=== PATIENT | female | born 1960 | race African-American/Black ===

== ENCOUNTER 2020-01-17 07:59 | Outpatient (REF) | payer OTHER, SELFPAY | END 2020-01-17 08:00 | disposition home or self-care (01) | LOC: HO.HMGCLDS 07:59 | PROVIDERS: Visit Provider Internal Medicine | DX: Z20.828 Contact with and (suspected) exposure to other viral communicable diseases (principal) | CPT/HCPCS: C9803; U0003 ==

== ENCOUNTER 2020-02-02 13:19 | Outpatient (REF) | payer OTHER, SELFPAY | END 2020-02-02 13:20 | disposition home or self-care (01) | LOC: HO.HMGCLDS 13:19 | PROVIDERS: PCP Internal Medicine; Visit Provider Internal Medicine | DX: Z20.828 Contact with and (suspected) exposure to other viral communicable diseases (principal) | CPT/HCPCS: C9803; U0003 ==

== ENCOUNTER 2020-04-29 11:28 | Emergency (ER) | payer OTHER, SELFPAY ==
[2020-04-29 11:48] VITALS: BP 148/84; PULSE 86; RESP 16; TEMP 36.7; O2SAT 98; BMI 41.5
--- NOTE | 2020-04-29 12:20 | ED_ITS ---
HPI - General Adult General Chief complaint: Upper Respiratory Symptoms Stated complaint: FLU SYMPTONS Time Seen by Provider: 04/29/20 11:58 Source: patient Mode of arrival: ambulatory Limitations: no limitations History of Present Illness HPI narrative: 59 yo female presenting with body aches, fatigue and headaches for the last 2 days. She lives with her daughter who was diagnosed with COVID-19 last week. She reports her back aches are severe and she has been taking Tylenol and using Lidoderm patches with minimal relief. She has subjective fever and chills as well. No cough, SOB, chest pain or difficulty breathing. MD complaint: body aches Onset (ago): day(s) (2) Location: head, back, upper extremity and lower extremity Radiation: non-radiation Severity: severe Quality: aching Pain Consistency: constant Relieving factors: medication Exacerbating factors: movement Associated symptoms: fever/chills, headaches, malaise and weakness Treatments prior to arrival: none Related Data Previous Rx's Medication Instructions Recorded ibuprofen 600 mg PO Q8H PRN #20 tab 04/29/20 Allergies Allergy/AdvReac Type Severity Reaction Status Date / Time No Known Allergies Allergy Unverified 11/10/19 15:35 [No Known Allergies*] Review of Systems Review of Systems: Constitutional: + Fever, + Chills ENT/Mouth: No sore throat, No Rhinorrhea, No Swallowing Difficulty Cardiovascular: No Chest Pain, No SOB Respiratory: No Cough, No Sputum Gastrointestinal: No Nausea, No Vomiting, No Diarrhea, No abdominal Pain Musculoskeletal: No joint pain, + Myalgias Skin: No Skin Lesions, No rash Neuro: + Weakness (generalized), No Numbness, No Dizziness, + Headache Heme/Lymph: No Lymphadenopathy PMFSH Past Medical History Attestation statement: The following information was validated with the patient. Medical History HTN (hypertension) Social History Social History Advance Directives: Yes Advance Directives Information Provided: No Advance Directives on File: No Physical Exam Vital Signs: Vital Signs: Last Vital Signs Temp 98.0 F 04/29/20 11:48 Pulse 86 04/29/20 11:48 Resp 16 04/29/20 11:48 BP 148/84 H 04/29/20 11:48 Pulse Ox 98 04/29/20 11:48 Body Mass Index 41.5 Appearance: Alert. Oriented X3. No acute distress. Eyes: Pupils equal, round and reactive to light. ENT: Pharynx normal. Neck: Normal inspection. Neck supple. CVS: Normal heart rate and rhythm. Pulses normal. Respiratory: No respiratory distress. Breath sounds normal. Skin: Skin warm and dry. Normal skin color. Normal skin turgor. No rashes. Extremities: No lower extremity edema. Neuro: Oriented X 3. Non-focal, steady gait. Course Course Course Narrative: 59 y/o female with history of HTN presenting with COVID-19 symptoms after known exposure. Her VS are stable and she appears well, non- toxic. Lungs are clear. Symptoms most likely due to COVID-19 - will swab. Patient has been counseled on symptomatic management and warning signs/symptoms that should prompt urgent re-evaluation. She expressed understanding - stable for discharge home. Discharge Plan Discharge Clinical Impression: COVID-19 Patient Disposition: Home, Self-Care Instructions: COVID-19 (Coronavirus Disease 2019) (ED) Additional Instructions: You were found to be COVID-19 POSITIVE today. Your exam oxygen levels were normal. Rest. Drink plenty of fluids. Do not go out in public for the next 10 days. Take over the counter cold/flu medications as needed for your symptoms. Take Tylenol and/or Motrin as needed for fevers and body aches. Follow up with your doctor this week. If you develop shortness of breath, difficulty breathing or any other concerning symptom come back to the ER for further evaluation. Prescriptions: New ibuprofen 600 mg tablet 600 mg PO Q8H PRN (Reason: pain) Qty: 20 RF: 0 Stand Alone Forms: Work/School Release
[2020-04-29 12:48] LABS: IDNOW Serial# 9DD0AD1C
[2020-04-29 12:49] LABS: COVID-19 Test Positive (Negative)
== END 2020-04-29 13:06 | disposition home or self-care (01) ==
PROVIDERS: Physician Assistant; Emergency Provider Emergency Medicine
DX: U07.1 COVID-19 (principal); I10 Essential (primary) hypertension
CPT/HCPCS: 36415; 87635; 99283

== ENCOUNTER 2020-07-07 20:58 | Emergency (ER) | payer OTHER, SELFPAY ==
--- NOTE | ~2020-07-07 | XR_ITS ---
EXAMINATION: XR TIBIA AND FIBULA, LEFT CLINICAL INFORMATION: Fall with deformity. COMPARISON: None TECHNIQUE: AP and lateral views of the left tibia and fibula were obtained. FINDINGS: No fracture is seen. Soft tissue swelling is present around the lateral malleolus. Bony densities at the tip of the lateral malleolus probably secondary to remote trauma. Mild degenerative changes are present in the partially imaged patellofemoral joint. XR/XR tibia fibula LT 2V IMPRESSION: Soft tissue swelling with no evidence of an acute injury
[2020-07-07 21:19] VITALS: BP 140/78; PULSE 60; RESP 16; TEMP 36.8; O2SAT 98; BMI 41.5
--- NOTE | 2020-07-07 22:43 | ED.LOWEXIN ---
HPI - Extremity Injury (Lower) General Chief Complaint: Extremity Injury, Lower Stated Complaint: fall Time Seen by Provider: 07/07/20 21:44 Source: patient Mode of arrival: ambulatory Limitations: no limitations History of Present Illness HPI Narrative: 59-year-old female presents with right perera injury after tripping down her stairs. She hit her right perera on a stair, experience pain and swelling with bruising. She is having a difficult time ambulating because of the pain in the front of her right lower extremity. She does not report hitting her head, denies loss of consciousness, denies chest pain, chest pressure, palpitations, shortness breath, dizziness, lightheadedness, changes in vision, or any prodromal symptoms prior to her fall. She states that she was rushing to open the door. MD complaint: leg injury Onset (ago): hour(s) (Within the hour of arrival) Type of Injury: blunt Place: home Severity: moderate Severity scale (1-10): 5 Relieving factors: nothing Exacerbating factors: weight bearing, movement and palpation Context: direct blow Associated symptoms: swelling and ambulatory Other symptoms: none Treatments prior to arrival: cold therapy Related Data Previous Rx's Medication Instructions Recorded ibuprofen 600 mg PO Q8H PRN #20 tab 04/29/20 Allergies Allergy/AdvReac Type Severity Reaction Status Date / Time No Known Allergies Allergy Unverified 11/10/19 15:35 [No Known Allergies*] Review of Systems Review of Systems: Constitutional: No Fever, No Chills ENT/Mouth: No Ear Pain, No Hoarseness, No sore throat Eyes: No Eye Pain, No Swelling, No Redness, No Foreign Body Cardiovascular: No Chest Pain, No SOB Respiratory: No Cough, No Dyspnea Gastrointestinal: No Nausea, No Vomiting, No Diarrhea, No abdominal Pain Genitourinary: No Dysuria, No Hematuria Musculoskeletal: positive right anterior perera pain and swelling, No Myalgias, No Joint Swelling Skin: No Skin lacerations, No rash Neuro: No Weakness, No Numbness, No Paresthesias, No Loss of Consciousness, No Dizziness, No Headache Psych: No Anxiety/Panic, No Depression Heme/Lymph: no easy bruising, no Lymphadenopathy Endocrine: No Polyuria, No Polydipsia Yes all other systems are reviewed and are negative [facility] Past Medical History Attestation statement: The following information was validated with the patient. Source: old records reviewed Medical History HTN (hypertension) Social History Social History Advance Directives: No Advance Directives Information Provided: No Patient : No Physical Exam Vital Signs: Vital Signs: Last Vital Signs Temp 98.3 F 07/07/20 21:19 Pulse 60 07/07/20 21:19 Resp 16 07/07/20 21:19 BP 140/78 H 07/07/20 21:19 Pulse Ox 98 07/07/20 21:19 Body Mass Index 41.5 Appearance: Alert. Oriented X3. No acute distress. Eyes: Pupils equal, round and reactive to light. ENT: Pharynx normal. Neck: Normal inspection. Neck supple. CVS: Normal heart rate and rhythm. Pulses normal. Respiratory: No respiratory distress. Breath sounds normal. Abdomen: Soft and nontender. Skin: Skin warm and dry. Normal skin color. Normal skin turgor. Extremities: Positive swelling and bruising to the right perera, moves all extremities against resistance, able to stand and ambulate with a slight limp. Neuro: No motor deficit. No sensory deficit. No focal neural deficits. Course Course Course Narrative: 59-year-old female presents with a right perera injury. Plan of care is x-ray. X-rays negative for acute findings. Will apply an Connor wrap to help with swelling and pain. Instructions for RICE and Tylenol Motrin for pain management. Patient was advised to follow up with her primary care physician if needed. Patient verbalized understanding of and agrees plan of care discharge home. MDM - Extremity Injury (Lower) MDM Narrative Medical decision making narrative: Hematoma, fracture Medical Records Attestation: I reviewed the patient's medical records. Imaging Data Left tib-fib: Attestation: I personally reviewed and interpreted this imaging study as follows: Radiologist's impression: EXAMINATION: XR TIBIA AND FIBULA, LEFT CLINICAL INFORMATION: Fall with deformity. COMPARISON: None TECHNIQUE: AP and lateral views of the left tibia and fibula were obtained. FINDINGS: No fracture is seen. Soft tissue swelling is present around the lateral malleolus. Bony densities at the tip of the lateral malleolus probably secondary to remote trauma. Mild degenerative changes are present in the partially imaged patellofemoral joint. XR/XR tibia fibula LT 2V IMPRESSION: Soft tissue swelling with no evidence of an acute injury Discharge Plan Discharge Clinical Impression: Contusion of left lower leg Patient Disposition: Home, Self-Care Instructions: Contusion in Adults (ED), R.I.C.E. Treatment (ED), Hematoma (ED) Additional Instructions: You were evaluated for injury sustained from a fall. Your x-ray of your left leg is negative for fracture. You do have a contusion or hematoma to your perera. Please keep an Connor wrap on it for the next few days, ice and elevate. Use Motrin or Tylenol as needed for pain management Follow-up with primary care physician as needed. Thank you for choosing this emergency department for evaluation. Please follow-up with primary care physician as needed. Return to the emergency department for any new, concerning, or worsening symptoms. Prescriptions: No Action ibuprofen 600 mg tablet 600 mg PO Q8H PRN (Reason: pain) Qty: 20 RF: 0 Stand Alone Forms: Work/School Release Interventions: ED Discharge Assessment Last Done: 07/07/20 23:28 Discharge Date/Time: 07/07/20 23:29
== END 2020-07-07 23:29 | disposition home or self-care (01) ==
PROVIDERS: Emergency Provider Internal Medicine; PCP Internal Medicine
DX: S80.12XA Contusion of left lower leg, initial encounter (principal); W22.8XXA Striking against or struck by other objects, initial encounter; Y93.89 Activity, other specified; Y92.018 Other place in single-family (private) house as the place of occurrence of the external cause; Y99.9 Unspecified external cause status
CPT/HCPCS: 73590; 99283; 99284

== ENCOUNTER 2020-11-18 09:41 | Emergency (ER) | payer OTHER, SELFPAY ==
[2020-11-18 09:44] VITALS: BP 187/76; PULSE 68; RESP 19; TEMP 36.6; O2SAT 99; BMI 45.7
--- NOTE | 2020-11-18 11:00 | ED.BACK ---
HPI - Back Pain/Injury General Chief Complaint: Back Pain/Injury Stated Complaint: upper back pain Time Seen by Provider: 11/18/20 11:00 Source: patient Mode of arrival: ambulatory Limitations: no limitations History of Present Illness HPI Narrative: 60-year-old female presents with acute on chronic upper back pain. Patient reports she has a lump on the right side of her back that has been worked up and is benign. States that this lump can affect her body mechanics and make her upper back have back pain. One week ago patient started having back pain right greater than left. She called her PCP who refilled her tizanidine. Patient has been alternating Tylenol ibuprofen and taking lidocaine patches. Patient states that the pain gets worse every 4-6 hours. She has not had any trauma, no repetitive motion, no heavy lifting. No red flag symptoms; no fever, leg weakness, incontinence of bowel or bladder, saddle paresthesias, IV drug use, or personal history of cancer. MD elicited complaint: back pain Pertinent past history: prior back pain Onset (ago): week(s) (1) Timing: constant Severity: severe Similar Symptoms Previously: Yes Quality: dull and aching Location: right upper back and left upper back Radiation: none Exacerbating factors: movement Relieving factors: medication Associated symptoms: denies other symptoms Treatments prior to arrival: acetaminophen Work related injury: No Related Data Previous Rx's Medication Instructions Recorded ibuprofen 600 mg tablet 600 mg PO Q8H PRN #20 tab 04/29/20 ketorolac 10 mg tablet 10 mg PO Q6H 5 Days #20 tab 11/18/20 lidocaine 5 % topical patch 1 patch TOPICAL DAILY #15 ea 11/18/20 methocarbamol 750 mg tablet 750 mg PO TID 5 Days #15 tab 11/18/20 Allergies Allergy/AdvReac Type Severity Reaction Status Date / Time No Known Allergies Allergy Unverified 11/10/19 15:35 [No Known Allergies*] Review of Systems Constitutional: Constitutional: Denies body ache(s), Denies chills, Denies fatigue, Denies fever(s), Denies headache(s), Denies malaise and Denies weakness Eyes: Eyes: Denies diplopia ENT: Denies vertigo, Denies dizziness, Denies headache(s), Denies neck pain and Denies throat swelling Cardiovascular: Cardiovascular: Denies chest pain, Denies syncope, Denies leg edema, Denies lightheadedness, Denies Loss of Consciousness, Denies palpitations and Denies dyspnea Respiratory: Respiratory: Denies chest congestion, Denies cough and Denies dyspnea Musculoskeletal: Musculoskeletal: Reports back pain, Denies neck pain, Denies numbness and Denies tingling Neurologic: Denies confusion, Denies vertigo, Denies dizziness, Denies syncope, Denies headache(s), Denies numbness, Denies tingling and Denies weakness Psychiatric: Psychiatric: Denies anxiety, Denies confusion and Denies depression Endocrine: Endocrine: Denies fatigue and Denies palpitations Allergic/Immunologic: Allergic/Immunologic: Denies throat swelling PMFSH Past Medical History Medical History Depression HTN (hypertension) Social History Social History Advance Directives: No Advance Directives Information Provided: No Physical Exam Vital Signs: Vital Signs: Last Vital Signs Temp 98 F 11/18/20 09:44 Pulse 68 11/18/20 09:44 Resp 19 11/18/20 09:44 BP 187/76 H 11/18/20 09:44 Pulse Ox 99 11/18/20 09:44 Body Mass Index 45.7 Const: General: No confusion Nutritional Appearance: well nourished Orientation/consciousness: No confusion Limitations: no limitations Eyes: Conjunctivae: conjunctivae normal Pupils: Equal, round and reactive pupils present EOM: EOMs intact bilaterally Neck: Neck: Yes full ROM, Yes no lymphadenopathy and Yes supple Resp: Effort & Inspection: normal respiratory effort and able to speak in complete sentences Auscultation: clear to auscultation bilaterally, no crackles, no rales, no rhonchi and no wheezes Cardio: Rate: regular rate Rhythm: regular rhythm Heart sounds: S1 normal heart sound present and S2 normal heart sound present : General: Yes no CVA tenderness Back/Spine/Pelvis: Back: no CVA tenderness Cervical Spine: normal cervical lordosis, cervical ROM normal, No Cervical spine tenderness and No cervical ROM abnormal Thoracic/Lumbar Spine: thoraco-lumbar ROM normal, mass (right mid back) rubbery and mobile; Negative for tender, pain with thoraco-lumbar ROM, paraspinal muscle tenderness on the right greater than left, thoraco-lumbar spasm on the right greater than left, No thoracic spinal tenderness, No lumbar spinal tenderness and No straight leg raise positive Pelvis: no pain with anterior-posterior compression and no buttock tenderness Skin: General skin exam: no rashes or lesions noted Neuro: General: No confusion Cranial nerves: Yes Equal, round and reactive pupils present Extrem: General: Yes normal to inspection and Yes full ROM Psych: Appearance: grossly normal Affect: normal affect Attitude: cooperative Thought process: Normal thought process present Course Course Course Narrative: 60-year-old female presents with acute on chronic back pain, no red flag symptoms. Will try different muscle relaxant, stop tizanidine, start Robaxin, gave IM ketorolac, prescribed ketorolac and lidocaine patches, counseled patient to follow-up with her PCP for referral to physical therapy and possibly start a TENs machine again MDM - Back Pain/Injury ECG Data Interpretation: Sinus at a rate of 63, OH interval 126, QTC 435, normal axis, no ST elevation or depression, nonspecific T-wave changes. Is no prior EKG Discharge Plan Discharge Clinical Impression: Back pain Qualifiers: Back pain location: thoracic back pain Chronicity: chronic Back pain laterality: right Qualified Code(s): M54.6 - Pain in thoracic spine Patient Disposition: Home, Self-Care Instructions: Acute Low Back Pain (ED) Additional Instructions: Please call your primary care provider. Please discuss a referral to physical therapy, and possibly starting the TENs machine again. Please fill the prescriptions that I prescribed for you, ketorolac, lidocaine patches, and methocarbamol. Please STOP the tizanidine and START the methocarbamol. Stop taking ibuprofen, and take the ketorolac for the next 5 days. You may take Tylenol as well. Do not take any ibuprofen containing products while you are taking the ketorolac. Please return to emergency room if you have leg weakness, numbness in your groin area, incontinence of bladder or bowel, or any other new or concerning symptoms. Prescriptions: New ketorolac 10 mg tablet 10 mg PO Q6H 5 Days Qty: 20 RF: 0 methocarbamol 750 mg tablet 750 mg PO TID 5 Days Qty: 15 RF: 0 lidocaine 5 % adhesive patch,medicated 1 patch topical DAILY Qty: 15 RF: 0 No Action ibuprofen 600 mg tablet 600 mg PO Q8H PRN (Reason: pain) Qty: 20 RF: 0 Interventions: ED Discharge Assessment Last Done: 11/18/20 12:17 Discharge Date/Time: 11/18/20 12:18
--- NOTE | 2020-11-18 11:46 | ECG_ITS ---
Test Reason : RIGHT ARM PAIN Blood Pressure : / mmHG Vent. Rate : 063 BPM Atrial Rate : 063 BPM P-R Int : 126 ms QRS Dur : 110 ms QT Int : 426 ms P-R-T Axes : 030 024 043 degrees QTc Int : 435 ms Normal sinus rhythm Nonspecific T wave abnormality Abnormal ECG No previous ECGs available Referred By: Bess Domingo Electronically Signed By:GENESIS CACERES
[2020-11-18] MEDS: Ketorolac Tromethamine 15 MG/ML VIAL 30 MG IM (11:51)
[2020-11-18] MEDS: Lidocaine/Epineph/Tetracaine 3 ML GEL.PF.APP TOPICAL (11:52)
== END 2020-11-18 12:18 | disposition home or self-care (01) ==
PROVIDERS: Emergency Provider Emergency Medicine Emergency Medical Services; PCP Internal Medicine
DX: M54.6 Pain in thoracic spine (principal); Z79.899 Other long term (current) drug therapy
CPT/HCPCS: 93005; 96372; 99284; J1885

== ENCOUNTER 2021-09-23 07:26 | Emergency (ER) | payer OTHER, SELFPAY ==
[2021-09-23 07:29] VITALS: BP 150/88; PULSE 72; RESP 18; TEMP 36.6; O2SAT 96; BMI 45.7
--- NOTE | 2021-09-23 08:36 | ED_ITS ---
HPI - Back Pain/Injury General Chief Complaint: Back Pain/Injury Stated Complaint: back, shoulder, arm pain Time Seen by Provider: 09/23/21 08:15 Source: patient Mode of arrival: ambulatory Limitations: no limitations History of Present Illness HPI Narrative: 60 y/o female with history of chronic upper back painWho presents to the ER for acute exacerbation for the last couple of weeks. She reports her sister re cently and the need to clear her apartment, she was doing a lot of heavy lifting a couple of weeks ago and since then she has had worsening of her right-sided upper back pain. She reports the pain radiates down the back of her right arm. She has been having a difficult time finding any comfortable position, sleeping. she was previously prescribed gabapentin last month with some improvement but she ran out. She was also previously on tizanidine and also ran out. She has an appointment with her primary care doctor on September 30 for follow-up and a plan. She also has been using Lidoderm patches, and alternating Motrin and Tylenol. She denies any numbness or tingling in her right upper extremity. She denies any trauma or injury. MD elicited complaint: back pain and back injury Pertinent past history: prior back pain and back surgery (s/p lipoma removal) Onset (ago): week(s) Timing: constant Severity: severe Similar Symptoms Previously: Yes Quality: sharp, aching and spasming Location: right upper back Exacerbating factors: movement Relieving factors: medication Context: while lifting and turning/twisting Associated symptoms: denies other symptoms Treatments prior to arrival: acetaminophen Work related injury: No Related Data Home Medications Medication Instructions Recorded Confirmed amlodipine 10 mg tablet 10 mg PO DAILY 09/10/21 diclofenac sodium 1 % topical gel 2 g topical QID 09/10/21 fluoxetine 40 mg capsule 40 mg PO DAILY 09/10/21 tizanidine 4 mg tablet 4 mg PO BEDTIME 09/10/21 Previous Rx's Medication Instructions Recorded ketorolac 10 mg tablet 10 mg PO Q6H 5 days #20 tabs 11/18/20 lidocaine 5 % topical patch 1 patch topical DAILY #15 ea 11/18/20 methocarbamol 750 mg tablet 750 mg PO TID 5 days #15 tabs 11/18/20 ibuprofen 600 mg tablet 600 mg PO Q8H PRN pain #20 tabs 09/10/21 gabapentin 300 mg capsule 300 mg PO TID #14 caps 09/23/21 oxycodone 5 mg tablet 5 mg PO Q8H PRN severe pain (scale 09/23/21 score 7-10) #8 tabs tizanidine 2 mg tablet 2 mg PO TID PRN muscle spasticity 09/23/21 #14 tabs Allergies Allergy/AdvReac Type Severity Reaction Status Date / Time No Known Allergies Allergy Unverified 09/10/21 15:02 [No Known Allergies*] Review of Systems Review of Systems: Constitutional: No Fever, No Chills ENT/Mouth: No sore throat, No Rhinorrhea Cardiovascular: No Chest Pain, No SOB Respiratory: No Cough, No Sputum Gastrointestinal: No Nausea, No Vomiting, No abdominal Pain Musculoskeletal: + joint pain, + Myalgias Skin: No Skin Lesions, No rash Neuro: No Weakness, No Numbness, No Dizziness, No Headache Psych: No Anxiety/Panic, No Depression Heme/Lymph: No Bruising, No Lymphadenopathy PMFSH Past Medical History Medical History Depression HTN (hypertension) Social History Social History Advance Directives: No Advance Directives Information Provided: No Physical Exam Vital Signs: Vital Signs: Last Vital Signs Temp 98 F 09/23/21 07:29 Pulse 72 09/23/21 07:29 Resp 18 09/23/21 07:29 BP 150/88 H 09/23/21 07:29 Pulse Ox 96 09/23/21 07:29 O2 Del Method 09/23/21 07:29 BMI result Body Mass Index 45.7 Appearance: Alert. Oriented X3. No acute distress. HEENT: normal inspection CVS: Normal heart rate and rhythm. Pulses normal. Respiratory: No respiratory distress. Skin: Skin warm and dry. Normal skin color. Normal skin turgor. No rashes. Extremities: Neuro: Oriented X 3. No motor deficit. No sensory deficit. Course Course Course Narrative: 60 y/o female with history of chronic upper back pain presents with acute exacerbation after lifting heavy boxes a few weeks ago. She has pain radiating into her right posterior arm consistent with radicular pain. Denies trauma. No focal weakness or sensory deficits on examination. She has an appointment with her PCP on 09/30. Will refill her tizanadine, gabapentin and start short course of oxycodone for severe pain. Patient agrees with plan and is stable for discharge home with close outpatient follow up. Discharge Plan Discharge Clinical Impression: Cervical radiculopathy, Chronic upper back pain Patient Disposition: Home, Self-Care Instructions: Cervical Radiculopathy (ED), Back Pain (ED) Additional Instructions: No bending, lifting or twisting. Use ice several times per day for 20 minutes at a time for the next 48 hours and then change to heat. Take medications as prescribed to help with pain and discomfort. Follow up with your Primary Care Doctor on 09/30 as scheduled. If your pain worsens, if you develop new numbness, tingling, weakness, loss of function call 911 or come back to the ER right away for evaluation. Prescriptions: New tizanidine 2 mg tablet 2 mg PO TID PRN (Reason: muscle spasticity) Qty: 14 0RF oxycodone 5 mg tablet 5 mg PO Q8H PRN (Reason: severe pain (scale score 7-10)) Qty: 8 0RF Rx Instructions: Partial Fill upon patient request. gabapentin 300 mg capsule 300 mg PO TID Qty: 14 0RF No Action ketorolac 10 mg tablet 10 mg PO Q6H 5 Days Qty: 20 0RF methocarbamol 750 mg tablet 750 mg PO TID 5 Days Qty: 15 0RF lidocaine 5 % adhesive patch,medicated 1 patch topical DAILY Qty: 15 0RF Rx Instructions: leave on most painful area for up to 12 hrs fluoxetine 40 mg capsule 40 mg PO DAILY amlodipine 10 mg tablet 10 mg PO DAILY tizanidine 4 mg tablet 4 mg PO BEDTIME diclofenac sodium 1 % gel 2 g topical QID Rx Instructions: apply to single elbow, wrist or hand; for hand includes palm/fingers/back of hand ibuprofen 600 mg tablet 600 mg PO Q8H PRN (Reason: pain) Qty: 20 0RF Referrals: Zeferino Marsh III, MD [Primary Care Provider] - (acute on chronic upper back pain, cervical radiculopathy ) Stand Alone Forms: Work/School Release
[2021-09-23] MEDS: oxyCODONE HCl Immed Release 5 MG TABLET PO (08:48)
[2021-09-23] MEDS: Ketorolac Tromethamine 30 MG/ML VIAL IM (08:48)
[2021-09-23] MEDS: Gabapentin 300 MG CAPSULE PO (08:49)
== END 2021-09-23 10:08 | disposition home or self-care (01) ==
PROVIDERS: Emergency Provider Emergency Medicine; PCP Internal Medicine
DX: M54.12 Radiculopathy, cervical region (principal); M54.50 Low back pain, unspecified; M79.601 Pain in right arm; Z79.899 Other long term (current) drug therapy
CPT/HCPCS: 96372; 99283; 99284; J1885

== ENCOUNTER 2022-11-30 06:50 | Emergency (ER) | payer OTHER, SELFPAY ==
[2022-11-30 07:24] VITALS: BP 193/94; PULSE 69; RESP 18; TEMP 36.1; O2SAT 97; BMI 45.4
--- NOTE | 2022-11-30 08:29 | ED.BACK ---
HPI - Back Pain/Injury General Chief Complaint: Back Pain/Injury Stated Complaint: Sciatic pain Time Seen by Provider: 11/30/22 07:46 Source: patient Mode of arrival: ambulatory Limitations: no limitations History of Present Illness HPI Narrative: Patient is a 62-year-old female who presents emergency department for evaluation of right hip pain radiating down her leg. This has been ongoing for the past month. She was evaluated at Urgent Care approximately 2 weeks ago, she had a right lower extremity venous ultrasound revealed no evidence of DVT, she received a prescription for prednisone approximately 1 week ago 40 mg daily for 5 days with some improvement in her pain. She has been applying topical diclofenac gel with minimal improvement. She has known arthritis. Denies any recent precipitating injury. At this time denies any lower back pain. She saw her primary care provider 1 week ago and was given a referral [facility] was advised she will likely require cortisone injections. While she is working she is taking Advil duo twice during the day, and Advil p.m. at bedtime with some improvement in her pain. She had been taking tizanidine with gabapentin frequently throughout the past year, she had some leftover and she states that when she takes this it does help with her pain. However it makes her drowsy, and she cannot work while taking this medication. Denies fevers, chills, burning with micturition, urinary frequency/urgency/hesitancy, bladder or bowel dysfunction, numbness or tingling of the perineum or bilateral legs. Denies any recent surgical procedures, any known immune compromising conditions, personal history of cancer, or IV drug usage. MD elicited complaint: back pain Related Data Home Medications Medication Instructions Recorded Confirmed amlodipine 10 mg tablet 10 mg PO DAILY 09/10/21 diclofenac sodium 1 % topical gel 2 g topical QID 09/10/21 fluoxetine 40 mg capsule 40 mg PO DAILY 09/10/21 tizanidine 4 mg tablet 4 mg PO BEDTIME 09/10/21 Previous Rx's Medication Instructions Recorded ketorolac 10 mg tablet 10 mg PO Q6H 5 days #20 tabs 11/18/20 lidocaine 5 % topical patch 1 patch topical DAILY #15 ea 11/18/20 methocarbamol 750 mg tablet 750 mg PO TID 5 days #15 tabs 11/18/20 ibuprofen 600 mg tablet 600 mg PO Q8H PRN pain #20 tabs 09/10/21 gabapentin 300 mg capsule 300 mg PO TID #14 caps 09/23/21 oxycodone 5 mg tablet 5 mg PO Q8H PRN severe pain (scale 09/23/21 score 7-10) #8 tabs tizanidine 2 mg tablet 2 mg PO TID PRN muscle spasticity 09/23/21 #14 tabs gabapentin 300 mg capsule 300 mg PO TID #20 caps 11/30/22 tizanidine 2 mg capsule 2 mg PO TID PRN muscle spasticity 11/30/22 #20 caps Allergies Allergy/AdvReac Type Severity Reaction Status Date / Time No Known Allergies Allergy Verified 11/30/22 07:28 [No Known Allergies*] Review of Systems Review of Systems: Constitutional: No weight loss, fever, chills, weakness or fatigue. HEENT: No visual loss, blurred vision, double vision. No hearing loss, sneezing, congestion, runny nose or sore throat. Skin: No rash or itching. Cardiovascular: No chest pain, chest pressure or chest discomfort. No palpitations or pedal edema. Respiratory: No shortness of breath, cough or sputum production. Gastrointestinal: No anorexia, nausea, vomiting or diarrhea. No abdominal pain or blood in stool. Genitourinary: No burning micturition. No urinary frequency or incontinence. Neurologic: No headache, dizziness, syncope, unilateral weakness, ataxia, numbness or tingling in the extremities. No change in bowel or bladder control. Musculoskeletal: + hip pain as noted in HPI Hematologic: No bleeding or bruising. Lymphatics: No enlarged lymph nodes. Psychiatric:No depression or anxiety. Endocrine: No reports of sweating. No cold or heat intolerance. No polyuria or polydipsia. Yes all other systems are reviewed and are negative [facility] Past Medical History Attestation statement: The following information was validated with the patient. Source: old records reviewed Medical History Depression HTN (hypertension) Physical Exam Vital Signs: Vital Signs: Last Vital Signs Temp 97.0 F 11/30/22 07:24 Pulse 69 11/30/22 07:24 Resp 18 11/30/22 07:24 BP 193/94 H 11/30/22 07:24 Pulse Ox 97 11/30/22 07:24 O2 Del Method Room Air 11/30/22 07:24 BMI result Body Mass Index 45.4 Appearance: Alert.?Oriented to person, place and time. No acute distress.?Normal affect. Eyes: Pupils equal, round and reactive to light.? ENT: Pharynx normal.?? Neck: Normal inspection.? Neck supple.?? CVS: Heart sounds normal. Normal heart rate and rhythm.? Pulses normal; bilateral radial pulses 2+, bilateral posterior tibial/dorsalis pedis pulses 2+.? Respiratory: No respiratory distress.? Lung sounds clear to auscultation bilaterally?? Abdomen: Soft and non-tender. Normoactive bowel sounds. No pulsatile mass.?? Skin: Skin warm and dry.? Normal skin color.? Normal skin turgor.?? Extremities: No lower extremity edema.? No calf ttp? Back: No lumbar lesion or SI joint tenderness upon palpation. Right lateral hip tenderness upon palpation. Near full AROM though this exacerbates her pain. 2+ DP/PT pulse bilaterally important No CVA tenderness. No midline spinal tenderness, step-off's, or deformity. No rashes, lesions, areas of induration or fluctuance, or signs of infection noted., Neuro: Moves all extremities spontaneously. 5/5 strength in hip extension/flexion, abduction, adduction. Sensation to light touch intact bilaterally. Patellar and Achilles reflex 2+ bilaterally. No ataxia, gait normal and steady.. No focal neuro deficits. Medical Decision Making Medical Decision Making MDM Narrative: Patient is a 62-year-old female who presents to the emergency department for evaluation of progressive right hip pain over the past month without precipitating injury. Upon physical examination there is no erythema, warmth, rashes, in the extremities neurovascularly intact distally. Not consistent septic arthritis, history and physical examination not consistent with acute fracture dislocation, unlikely vascular necrosis, has had outpatient venous ultrasound the recent past which did not reveal any evidence of DVT. She has had relief with standing gabapentin, although she cannot take these while she is working, due to side effects. Discussed with patient limited options for non drowsy/sedating pain management that she will be able to take while working aside from her current regimen. She has ran out of her tizanidine and gabapentin, I have sent an additional prescription to her pharmacy for her. Advised that she should contact her primary care provider/pharmacy retail support specialist on Thursday to determine whether she can obtain a sooner appointment than her current scheduled. We discussed worrisome signs and symptoms that would warrant re-evaluation emergency department. All questions answered. Stable for discharge. Differential Diagnosis Differential Diagnoses: The differential diagnosis associated with the presentation includes (As noted above) External Record Review External record reviewed: Outpatient record Tests considered The following testing was considered but not selected: Considered XR imaging, used shared decision making with patient, imaging deferred at this time, unlikely acute fracture/dislocation, known arthritis Prescription Management I considered prescription management with: Pain Medication Discharge Plan Discharge Clinical Impression: Hip pain Patient Disposition: Home, Self-Care Instructions: Hip Pain (ED) Additional Instructions: Please be sure to rest when you are able, you may apply ice/heat to the hip as tolerated. Elevate your legs when possible. Continue use of the topical cream; Diclofenac. I have sent an additional prescription for tizanidine and gabapentin to your pharmacy. Please follow-up with your PCP/specialist as scheduled. You may return back to emergency department any new or worsening symptoms or concerns. Prescriptions: New tizanidine 2 mg capsule 2 mg PO TID PRN (Reason: muscle spasticity) Qty: 20 0RF gabapentin 300 mg capsule 300 mg PO TID Qty: 20 0RF No Action tizanidine 2 mg tablet 2 mg PO TID PRN (Reason: muscle spasticity) Qty: 14 0RF oxycodone 5 mg tablet 5 mg PO Q8H PRN (Reason: severe pain (scale score 7-10)) Qty: 8 0RF Rx Instructions: Partial Fill upon patient request. gabapentin 300 mg capsule 300 mg PO TID Qty: 14 0RF ketorolac 10 mg tablet 10 mg PO Q6H 5 Days Qty: 20 0RF methocarbamol 750 mg tablet 750 mg PO TID 5 Days Qty: 15 0RF lidocaine 5 % adhesive patch,medicated 1 patch topical DAILY Qty: 15 0RF Rx Instructions: leave on most painful area for up to 12 hrs fluoxetine 40 mg capsule 40 mg PO DAILY amlodipine 10 mg tablet 10 mg PO DAILY tizanidine 4 mg tablet 4 mg PO BEDTIME diclofenac sodium 1 % gel 2 g topical QID Rx Instructions: apply to single elbow, wrist or hand; for hand includes palm/fingers/back of hand ibuprofen 600 mg tablet 600 mg PO Q8H PRN (Reason: pain) Qty: 20 0RF Referrals: Willow Wang MD [Primary Care Provider] -
[2022-11-30 08:39] VITALS: BP 140/76; PULSE 62; RESP 20; O2SAT 96
== END 2022-11-30 09:09 | disposition home or self-care (01) ==
PROVIDERS: Emergency Provider Emergency Medicine; PCP Family Medicine
DX: M25.551 Pain in right hip (principal); M54.50 Low back pain, unspecified; Z79.899 Other long term (current) drug therapy
CPT/HCPCS: 99283; 99284